=== PATIENT | female | born 1965 | race Caucasian/White ===

== ENCOUNTER 2017-03-09 11:11 | Observation (INO) | payer BC ==
[2017-03-09] MEDS ORDERED: HYDROcodone/Acetaminophen 5/325 mg Tablet PO PRN (12:19)
[2017-03-09] MEDS ORDERED: Ondansetron HCl/PF 4 MG/2 ML Vial IVP PRN (12:19)
[2017-03-09] MEDS ORDERED: Bisacodyl 5 MG TAB PO PRN (12:19)
[2017-03-09] MEDS ORDERED: Morphine Sulfate 2 MG/ML SYRINGE SLOW IVP PRN (12:21)
[2017-03-09] MEDS ORDERED: Nitroglycerin 0.4 MG TAB (25 Tab Bottle) SL PRN (12:21)
[2017-03-09 12:23] LABS: Troponin I 0.013 ng/mL (< 0.028)
--- NOTE | 2017-03-09 12:56 | HP ---
CHIEF COMPLAINT: Chest pain x2 days duration. HISTORY OF PRESENT ILLNESS: This is a 51-year-old female with a past medical history significant fo r hypertension as well as nicotine dependence, who presents to the hospital due to chest pain that s tarted a couple of days ago. The patient states that she was started on metoprolol approximately on Thursday or so. She states that approximately about a day after she began having chest pain that is located in the substernal to the left side region. She states that it was constant in nature, but h as been not fluctuating to coming and going. She states that the pain got up all the way to about a n 8-9/10. Currently, it is now /10 after nitroglycerin was given to her today. Along with this, s he was having some associated mild shortness of breath, but denies any dizziness, syncopal episodes or lightheadedness. She states this is the first time this has happened. She also denies any palpi tations as well. She denies having any cardiac stents or undergoing a catheterization in the past. Otherwise, patient denies any other current symptoms. She states that she is 1 pack per day smoke r and has been smoking for the past 20+ years. PAST MEDICAL HISTORY: See HPI. PAST SURGICAL HISTORY: None. SOCIAL HISTORY: The patient states she is a current every day smoker, 1 pack per day, denies any re creational drug use or alcohol abuse. HOME MEDICATIONS: Home medications are reviewed at this time. ALLERGIES: No known drug allergies. FAMILY HISTORY: Significant for hypertension. REVIEW OF SYSTEMS: A 14-point review of systems was reviewed and was negative other than what was m entioned in the HPI. PHYSICAL EXAMINATION: VITAL SIGNS: Blood pressure was 127/80, pulse was 56, it is now 64, respiratory rate was 18, temper ature was 97.4. The patient was satting 96% oxygen on room air. GENERAL: The patient was in no apparent distress, resting comfortably in the bed, alert, awake, simone ented x3. HEENT: Normocephalic, atraumatic. Eyes: Pupils are round and reactive to light. Extraocular musc les were intact. Conjunctivae was pink. Sclerae was nonicteric. Mouth: Oral mucosa pink and mois t. No erythema was noted. NECK: Soft, supple. No JVD, carotid bruits or lymphadenopathy. CARDIOVASCULAR: Regular rate and rhythm. S1 and S2 sounds were heard. No murmurs could be appreci ated. RESPIRATORY: Clear to auscultation bilaterally. No added sounds. ABDOMEN: Positive bowel sounds, soft, nontender, nondistended. EXTREMITIES: Pulses were 2+ dorsalis and radial pulse. No pitting edema could be appreciated. NEUROLOGIC: Cranial nerves II-XII are grossly intact. Motor was intact as well as sensation. LABORATORY DATA: White blood cell count was 7.2, hemoglobin 15.0, hematocrit was 44.1, platelet cou nt was 232. Sodium was 138, potassium 3.9, chloride 106, bicarbonate 23, BUN was 15, creatinine was 0.79, glucose is 133. EKG shows sinus bradycardia. Chest x-ray did not show any acute abnormaliti es at this time. ASSESSMENT AND PLAN: 1. Atypical chest pain. Rule out acute coronary syndrome. We will consult Cardiology. Trend trop onins. Aspirin and Lipitor. We will hold off on metoprolol at this time. The patient will likely need a stress test as the patient does have risk factors for coronary syndrome, more specifically wi th nicotine dependence that she is currently dealing with. 2. Hypertension. We will hold off metoprolol. Blood pressure is controlled at this time. We will resume home medication after medicine reconciliation. 3. Nicotine dependence. The patient was counseled on tobacco cessation. We will administer a dev keith patch. 4. Deep venous thrombosis prophylaxis. We will start the patient on Lovenox as well as venodynes.
[2017-03-09 13:28] VITALS: BMI 25.7
[2017-03-09] MEDS: Nicotine 21 MG PATCH TD SCH (13:42)
[2017-03-09] MEDS: Acetaminophen 325 MG TAB PO PRN ×2 (13:42→20:58)
[2017-03-09 15:29] LABS: Troponin I 0.011 ng/mL (< 0.028)
--- NOTE | 2017-03-09 17:29 | CON ---
DATE OF CONSULTATION: 03/09/2017 REASON FOR CONSULTATION: Chest pain. HISTORY OF PRESENT ILLNESS: Ms. Mantilla is a very pleasant 51-year-old white female who comes to the hospital for chest pain. She states that 2 days ago she started having a tight feeling in the mid sternal area. She thought it was related to the new medication she started a couple of days back. She has taken about 4 doses of metoprolol and she thought it was due to this. This morning, when th e pain was not getting any better, she decided to come in for evaluation. She had seen Dr. Ross in the last few months for symptoms of palpitations and interscapular chest pain when the palpitations happened. He did an echocardiogram that showed normal LV function and normal diastolic function and also did a 24-hour Holter monitor that showed several runs of atrial tachycardia and she was starte d on suppressive therapy with metoprolol just a few days back. She thought it was the metoprolol an d once she stopped it, she continued to have the pain. She is here for evaluation. The first set o f troponins has been negative and this is in the setting of over 24 hours of pain. Cardiology is be ing consulted for further evaluation and care. PAST MEDICAL HISTORY: 1. Hypertension. 2. Tobacco use. 3. Atrial tachycardia. PAST SURGICAL HISTORY: None. SOCIAL HISTORY: Smokes a pack a day. No drug or alcohol use. OUTPATIENT MEDICATIONS: 1. Aspirin 81 daily. 2. Metoprolol succinate 25 mg daily. ALLERGIES: No known drug allergies. FAMILY HISTORY: Noncontributory. REVIEW OF SYSTEMS: A 12-point review of systems was done and is all negative unless stated in the h istory of present illness. PHYSICAL EXAMINATION: VITAL SIGNS: Temperature 98.2, pulse 59, respiratory rate 16, satting 97% on room air, blood pressu re 113/57. GENERAL: Awake, alert and oriented x3, in no distress. HEENT: Normocephalic, atraumatic. NECK: Supple. LUNGS: Clear. CARDIOVASCULAR: S1, S2, no S3, S4, no murmurs or rubs. ABDOMEN: Soft, positive bowel sounds. EXTREMITIES: 1+ edema. SKIN: Warm and dry. LABORATORY WORK: Reviewed. Troponin is negative x2. ASSESSMENT AND PLAN: Chest pain: Concern for either gastroesophageal reflux disease or just a marlon le pericarditis. Her EKG is not indicative of pericarditis, but her pain is worse when she lays fla t on her back, better when she sits up. This could be related to some level of acid reflux from beg inning her metoprolol. We will give her a dose of Protonix. We will repeat an echocardiogram just to make sure there is no fluid around her heart. I doubt that there is going to be any difference i n her left ventricular function or valvular structures. If she does have a completely normal echo, we will plan on doing a nuclear stress test tomorrow morning. Otherwise, we will treat for whatever we find on the echo. Thank you for letting us participate in the care of your patient. Dr. Ross, her primary cardiologis t, will follow in the morning.
[2017-03-09 18:43] LABS: Troponin I 0.011 ng/mL (< 0.028)
[2017-03-09] MEDS: Docusate 100 MG CAP PO SCH (20:58)
[2017-03-09] MEDS ORDERED: Atorvastatin Calcium 40 MG TAB PO SCH (21:00)
[2017-03-10 05:29] LABS: #Basophils 0.1 thou/uL (0.0-0.2); #Eosinphils 0.1 thou/uL (0.0-0.7); #Lymphocytes 1.6 thou/uL (1.20-3.40); #Monocytes 0.4 thou/uL (0.11-0.59); #Neutrophils 3.8 thou/uL (1.40-6.50); %Basophils 1.4 % (0.0-1.0); %Eosinophils 2.4 % (0.0-10.0); %Lymphocytes 26.4 % (21.0-51.0); %Monocytes 7.3 % (0.0-10.0); Mean Platelet Volume 7.3 fL (7.4-10.4); Red Blood Cell (RBC) Count 4.99 mill/uL (4.20-5.40)
[2017-03-10 06:00] LABS: Anion Gap 11 mmol/L (10-20); BUN (Urea Nitrogen) 13 mg/dL (9.8-20.1); Calc. Creatinine Clearance 105 mL/min (70-130); Calcium 9.4 mg/dL (7.8-10.44); Carbon Dioxide 24 mmol/L (22-29); Chloride 107 mmol/L (98-107); Estimated GFR-MDRD 82
[2017-03-10] MEDS ORDERED: Enoxaparin Sodium 40 MG/0.4 ML SYRINGE SC SCH (09:00)
[2017-03-10] MEDS: Docusate 100 MG CAP PO SCH (10:46)
[2017-03-10 11:27] VITALS: BP 113/56; TEMP 97.4
[2017-03-10] MEDS ORDERED: Adenosine 6 MG/2 ML VIAL ONE (12:00)
[2017-03-10] MEDS: Nicotine 21 MG PATCH TD SCH (12:05)
--- NOTE | 2017-03-10 12:36 | NM ---
CARDIAC SPECT: HISTORY: A 51-year-old female with chest pain, HYPERTENSION, SMOKER. TECHNIQUE: A myocardial perfusion scan was performed using the single-isotope 1-day protocol with Technetium 99 m sestamibi. Eleven mCi were injected intravenously for the rest exam followed by [address] ress study. Pharmacologic stress with adenosine was monitored and interpreted by Dr. Ruslan Oden, [employer]. FINDINGS: Homogeneous tracer distribution is seen in the myocardial segments on stress and rest images without fixed or reversible defects. GATED SPECT LVEF: 72%. WALL MOTION EXAM: Normal. IMPRESSION: Normal myocardial perfusion scan. POS: OFF
--- NOTE | 2017-03-10 15:04 | DIS ---
DATE OF DISCHARGE: 03/10/2017 DISCHARGE DISPOSITION: Home. FOLLOWUP: 1. Follow up with primary care physician, Dr. Alexandrea Enriquez in 1 week. 2. Follow up with Cardiology, Dr. Waldemar Ross in 1 week. The patient was seen and examined on the day of discharge, denies any new complaints. No chest pain , shortness of breath or palpitations reported. BRIEF HOSPITAL COURSE: The patient is a 51-year-old female with hypertension with ongoing tobacco a buse, who presented to the hospital with chest discomfort. Please refer to the history and physical for further details. The patient was admitted to the hospital with a diagnosis of chest discomfort, rule out acute prado ry syndrome. The patient was evaluated by Cardiology, Dr. Benitez who was covering for Dr. Ross. A stress test was done that was negative for reversible ischemia. Echocardiogram has been done and th e report of which is pending at this time. The patient has been cleared by Cardiology for discharge . She was advised to follow up with Cardiology in next week. SIGNIFICANT LABORATORIES: 1. Cardiac enzymes were normal. 2. BUN 13, creatinine 0.74. 3. Electrolytes in normal range. 4. hemoglobin 15.1. 5. The patient was extensively counseled to quit smoking. FINAL DIAGNOSES: 1. Chest discomfort, acute coronary syndrome ruled out. Patient has been started on PPIs for possi ble GI as a cause of chest discomfort. 2. Hypertension. 3. Ongoing tobacco abuse. 4. Chronic kidney disease stage 2. Plan of care was discussed with the patient. She stated understanding.
== END 2017-03-10 16:03 | disposition home or self-care (01) ==
LOC: ERS 11:11 → 2SW 11:58
PROVIDERS: ADMIT Internal Medicine; ATTEND Internal Medicine
DX: R07.89 Other chest pain (principal); I12.9 Hypertensive chronic kidney disease with stage 1 through stage 4 chronic kidney disease, or unspecified chronic kidney disease; N18.2 Chronic kidney disease, stage 2 (mild); F17.210 Nicotine dependence, cigarettes, uncomplicated; Z79.82 Long term (current) use of aspirin; Z79.899 Other long term (current) drug therapy
CPT/HCPCS: 36415; 78452; 80048; 85025; 93005; 93017; 93306; 96372; A9500; G0378; J0153; J1650

== ENCOUNTER 2018-09-20 13:43 | Outpatient (CLI) | payer BC ==
--- NOTE | 2018-09-20 14:30 | CT ---
CT CHEST WITHOUT CONTRAST: HISTORY: Left upper lobe pulmonary nodule noted on recent chest x-ray. COMPARISON: Chest examination from 08/31/2018. FINDINGS: The lungs are clear of any infiltrative process. A thin-walled cyst is seen in the left upper lobe, adjacent to the major fissure. The area of nodularity seen in the left upper lobe is actually seen o n the vascular radiologist film, but there is no corresponding nodule, and it appears to represent just a coalescenc e of vessels. There are no bronchiectatic lung changes. Some gravity-dependent atelectasis is noted . No significant mediastinal or hilar adenopathy is appreciated. The visualized liver parenchyma shows no focal findings. IMPRESSION: 1. Unremarkable CT chest. 2. No pulmonary nodule identified within the left upper lobe. POS: H
== END 2018-09-20 13:44 | disposition home or self-care (01) ==
LOC: BICCT 13:43
PROVIDERS: ATTEND Nurse Practitioner
DX: R91.1 Solitary pulmonary nodule (principal)
CPT/HCPCS: 71250

== ENCOUNTER 2019-04-22 13:26 | Outpatient (CLI) | payer BC ==
--- NOTE | 2019-05-09 14:22 | MMO ---
Bilateral MAMMO Bilat Screen [facility]. CLINICAL HISTORY: Patient is 53 years old and is seen for screening. The patient has the following family history of breast cancer: paternal grandmother. The patient has a history of thyroid cancer at age 48. VIEWS: The views performed were: bilateral craniocaudal with tomosynthesis; bilateral mediolateral oblique with tomosynthesis; and bilateral exaggerated craniocaudal. This study has been interpreted with the assistance of computer-aided detection. MAMMOGRAM FINDINGS: The breasts are heterogeneously dense, which could obscure a lesion on mammography. Finding 1: There are calcifications with grouped or clustered distribution seen in the CC view only seen in the central region of the right breast. Finding 2: There is a biopsy clip seen in the right breast. In the left breast, there are no suspicious masses, calcifications or areas of architectural distortion. IMPRESSION: FINDING 1: CALCIFICATIONS IN THE RIGHT BREAST REQUIRE ADDITIONAL EVALUATION. MAGNIFICATION VIEWS ARE RECOMMENDED. FINDING 2: BIOPSY CLIP IN THE RIGHT BREAST IS BENIGN. THE RESULTS OF THIS EXAM WERE SENT TO THE PATIENT. ACR BI-RADS Category 0 - Incomplete: Need additional imaging evaluation. [facility] will notify the patient of the need for additional imaging services. MAMMOGRAPHY NOTE: 1. A negative mammogram report should not delay a biopsy if a dominant of clinically suspicious mass is present. 2. Approximately 10% to 15% of breast cancers are not detected by mammography. 3. Adenosis and dense breasts may obscure an underlying neoplasm. Reported by: ASTER KUO MD Electonically Signed: [id number]
== END 2019-04-22 13:27 | disposition home or self-care (01) ==
LOC: BICMAMMO 13:26
PROVIDERS: ATTEND Nurse Practitioner
DX: Z12.31 Encounter for screening mammogram for malignant neoplasm of breast (principal); R92.1 Mammographic calcification found on diagnostic imaging of breast; Z80.3 Family history of malignant neoplasm of breast; Z85.850 Personal history of malignant neoplasm of thyroid
CPT/HCPCS: 77063; 77067

== ENCOUNTER 2019-05-13 11:40 | Outpatient (CLI) | payer BC ==
--- NOTE | 2019-05-13 14:10 | MMO ---
Right Breast MAMMO Unilat Diag [facility]. CLINICAL HISTORY: Patient is 53 years old and is seen for diagnostic exam. VIEWS: The views performed were: . FILMS COMPARED: The present examination has been compared to a prior imaging study performed at [facility] on 04/22/2019. This study has been interpreted with the assistance of computer-aided detection. MAMMOGRAM FINDINGS: The breast is heterogeneously dense, which could obscure a lesion on mammography. There is a cluster of indistinct calcifications within the posterior, slightly inferior, right breast. They are very faint, difficult to characterize at this point. Thus, follow up diagnostic mammogram advised in 6 months. At this point, the indistinct nature of these calcifcations would likely make biopsy very challenging. These findings and the recommendation for 6 month follow up was discussed with the patient at the time of interpretation. IMPRESSION: FINDING IN THE RIGHT BREAST IS PROBABLY BENIGN. FOLLOW-UP IN 6 MONTHS IS RECOMMENDED. THE RESULTS OF THIS EXAM WERE SENT TO THE PATIENT. ACR BI-RADS Category 3 - Probably benign finding - short interval follow-up suggested. [facility] will notify the patient of the need for additional imaging services. MAMMOGRAPHY NOTE: 1. A negative mammogram report should not delay a biopsy if a dominant of clinically suspicious mass is present. 2. Approximately 10% to 15% of breast cancers are not detected by mammography. 3. Adenosis and dense breasts may obscure an underlying neoplasm. Reported by: PATRICK HOWE MD Electonically Signed: [id number]
== END 2019-05-13 11:41 | disposition home or self-care (01) ==
LOC: BICMAMMO 11:40
PROVIDERS: ATTEND Nurse Practitioner
DX: R92.1 Mammographic calcification found on diagnostic imaging of breast (principal)
CPT/HCPCS: G0279

== ENCOUNTER 2019-09-28 19:24 | Emergency (ER) | payer BC ==
[2019-09-28 20:02] LABS: #Basophils 0.1 thou/uL (0.0-0.2); #Eosinphils 0.1 thou/uL (0.0-0.7); #Monocytes 0.5 thou/uL (0.11-0.59); %Lymphocytes 38.7 % (21.0-51.0); %Neutrophils 52.4 % (42.0-75.0); Hemoglobin 14.1 g/dL (12.0-16.0); Mean Platelet Volume 8.3 fL (7.4-10.4); Platelet Count 260 thou/uL (130-400); RBC Distribution Width 12.1 % (11.5-14.5); Red Blood Cell (RBC) Count 4.72 mill/uL (4.20-5.40); White Blood Cell (WBC) Count 7.6 thou/uL (4.8-10.8)
--- NOTE | 2019-09-28 20:16 | RAD ---
SINGLE VIEW OF THE CHEST: 09/28/19 COMPARISON: 03/09/17. HISTORY: Syncope. FINDINGS: Single view of the chest shows a normal sized cardiomediastinal silhouette. There is no evidence of c onsolidation, mass, or pleural effusion. The bones are unremarkable. IMPRESSION: No evidence of acute cardiopulmonary disease. POS: EAA
[2019-09-28 20:26] LABS: ALT (SGPT) 12 U/L (8-55); AST (SGOT) 19 U/L (5-34); Albumin 4.2 g/dL (3.5-5.0); Alkaline Phosphatase 110 U/L (40-110); Anion Gap 16 mmol/L (10-20); BUN (Urea Nitrogen) 13 mg/dL (9.8-20.1); Bilirubin, Total 0.3 mg/dL (0.2-1.2); CK (CPK) 60 U/L (29-168); Calc. Creatinine Clearance 0 mL/min (70-130); Calcium 9.4 mg/dL (7.8-10.44); Carbon Dioxide 20 mmol/L (22-29); Chloride 108 mmol/L (98-107); Estimated GFR-MDRD 77; Globulin 3.2 g/dL (2.4-3.5); Glucose 94 mg/dL (70-105); Protein, Total 7.4 g/dL (6.0-8.3); Sodium 140 mmol/L (136-145)
--- NOTE | 2019-09-28 20:49 | CT ---
CT OF THE BRAIN WITHOUT CONTRAST: 09/28/19 COMPARISON: None. HISTORY: Syncope. TECHNIQUE: Multiple contiguous axial images were obtained in a CT of the brain without contrast. FINDINGS: There are a few scattered hypodensities and subcortical and periventricular white matter which could be secondary to small vessel ischemic disease. These are predominantly in the frontal lobes. There is no large confluent infarction. There is no evidence of hydrocephalus, intracranial hemorrhage or ext ra-axial fluid collections. The calvarium and overlying soft tissues are unremarkable. The visualized paranasal sinuses and masto id air cells are well aerated. IMPRESSION: No evidence of acute intracranial abnormality. POS: EAA
[2019-09-29] MEDS ORDERED: Meclizine HCl 25 MG TAB ONE (04:00)
--- NOTE | 2019-09-30 14:51 | EKG ---
Test Reason : Blood Pressure : / mmHG Vent. Rate : 063 BPM Atrial Rate : 063 BPM P-R Int : 126 ms QRS Dur : 092 ms QT Int : 416 ms P-R-T Axes : 046 002 -16 degrees QTc Int : 425 ms Normal sinus rhythm Incomplete right bundle branch block New T wave inversion Abnormal ECG Confirmed by PUNEET POLLARD ([id number]), mapping editor BREANA RAMIRES ([id number]) on 09/30/2019 2:51:16 PM Referred By: Confirmed By:PUNEET POLLARD
== END 2019-09-28 22:10 | disposition home or self-care (01) ==
LOC: ERS 19:24
DX: R55 Syncope and collapse (principal); R42 Dizziness and giddiness; I10 Essential (primary) hypertension; Z87.891 Personal history of nicotine dependence; Z79.82 Long term (current) use of aspirin
CPT/HCPCS: 70450; 71045; 80053; 82550; 84484; 85025; 93005

== ENCOUNTER 2019-11-14 13:43 | Outpatient (CLI) | payer BC ==
--- NOTE | 2019-11-14 15:39 | MMO ---
Right Breast MAMMO Unilat Diag [facility]. CLINICAL HISTORY: Patient is 54 years old and is seen for diagnostic exam. The patient has the following family history of breast cancer: paternal grandmother. The patient has a history of thyroid cancer at age 48. VIEWS: The views performed were: right craniocaudal; right craniocaudal spot compression magnification; right craniocaudal with tomosynthesis; right mediolateral oblique; right mediolateral oblique with tomosynthesis; right mediolateral spot compression magnification; and right mediolateral with tomosynthesis. FILMS COMPARED: The present examination has been compared to prior imaging studies performed at [facility] on 04/22/2019, 05/13/2019 and 11/14/2019. This study has been interpreted with the assistance of computer-aided detection. MAMMOGRAM FINDINGS: The breast is heterogeneously dense, which could obscure a lesion on mammography. Finding 1: There is a new lobular mass measuring 9 millimeters with obscured margins seen in the upper-outer region of the right breast. Finding 2: There are calcifications seen in the lower-inner region of the right breast. Calcifications have indeterminate appearance. IMPRESSION: FINDING 1: NEW MASS IN THE RIGHT BREAST IS SUSPICIOUS. AN ULTRASOUND-GUIDED BREAST BIOPSY IS RECOMMENDED. FINDING 2: CALCIFICATIONS IN THE RIGHT BREAST ARE SUSPICIOUS. A STEREOTACTIC BREAST BIOPSY IS RECOMMENDED. WOULD RECOMMEND ULTRASOUND BIOPSY OF MASS INITIAL PROCEDURE. IF THIS IS BENIGN I WOULD RECOMMEND STEROTACTIC BIOPSY OF CALCIFICATIONS. THE RESULTS OF THIS EXAM WERE SENT TO THE PATIENT. ACR BI-RADS Category 4 - Suspicious abnormality - biopsy should be considered MAMMOGRAPHY NOTE: 1. A negative mammogram report should not delay a biopsy if a dominant of clinically suspicious mass is present. 2. Approximately 10% to 15% of breast cancers are not detected by mammography. 3. Adenosis and dense breasts may obscure an underlying neoplasm. Reported by: ROWENA GLOVER MD Electonically Signed: [id number]
--- NOTE | 2019-11-14 19:49 | ULT ---
RIGHT BREAST ULTRASOUND: History: New nodular density seen at the 10 o'clock position right breast on mammogram. FINDINGS: Real-time imaging of the right breast at the 10 o'clock position 4 cm from the nipple shows a hypoech oic 6 x 7 mm nodule. At the 8 o'clock position 4 cm from the nipple is a complex appearing cyst measu ring in the 6 mm range. Imaging in the region of the calcifications in the right breast at approximately the 4 o'clock positi on failed to show any definite mass. IMPRESSION: 1. BIRADS category 4 - suspicious abnormality. Ultrasound directed biopsy is recommended. This was di scussed with the patient and ultrasound directed biopsy is being scheduled. 2. Calcifications seen within the right breast are somewhat indeterminate. They have increased in num elissa over time, but on some images have a somewhat smudged appearance and may represent mild of calciu m. At this point, I would occlude any further evaluation of these calcifications until the biopsy res ults of this nodule are obtained. If this nodule is benign, given indeterminate appearance of the connor cifications, I believe a stereotactic biopsy of the calcifications would be indicated as the possibil ity of a DCIS is not excluded.
== END 2019-11-14 13:44 | disposition home or self-care (01) ==
LOC: BICMAMMO 13:43
PROVIDERS: ATTEND Nurse Practitioner
DX: R92.8 Other abnormal and inconclusive findings on diagnostic imaging of breast (principal)
CPT/HCPCS: G0279

== ENCOUNTER → 2019-11-15 | Day surgery (SDC) | payer BC ==
--- NOTE | 2019-11-15 13:25 | MMO ---
FILMS COMPARED: The present examination has been compared to prior imaging studies performed at [facility] on 04/22/2019, 05/13/2019 and 11/14/2019. MAMMOGRAM FINDINGS: The breasts are heterogeneously dense, which could obscure a lesion on mammography. There is a new biopsy clip seen in the upper-outer region of the right breast. IMPRESSION: NEW BIOPSY CLIP IN THE RIGHT BREAST IS CONFIRMED UTILIZING POST PROCEDURE MAMMOGRAM. Reported by: ASTER KUO MD Electonically Signed: [id number]
--- NOTE | 2019-11-15 13:31 | ULT ---
EXAM: Ultrasound-guided right breast biopsy PROVIDED CLINICAL HISTORY: Right breast mass COMPARISON: 11/14/2019 ultrasound and mammogram FINDINGS: Limited sonographic interrogation was performed of the right breast, with localization of the previou sly described mass. Informed consent was obtained from the patient. The skin overlying this region was prepped and draped in the usual sterile manner and the soft tissues anesthetized with 1% buffered lidocaine. A small skin incision was made. Continuous ultrasound guidance was utilized to obtain 4 core samples of the mass. Subsequently, continuous ultrasound guidance was utilized to place a biopsy site marker. [place] were withdrawn and hemostasis achieved. No immediate complications. IMPRESSION: Technically successful right breast biopsy. Please correlate with histology results to follow.
== END ==
LOC: BICULT 12:31
PROVIDERS: ATTEND Nurse Practitioner
PROC: 0H9T3ZX Drainage of Right Breast, Percutaneous Approach, Diagnostic (ICD-10-PCS; principal; 2019-11-15)
DX: C50.411 Malignant neoplasm of upper-outer quadrant of right female breast (principal); Z17.1 Estrogen receptor negative status [ER-]
CPT/HCPCS: 19083; 88305; 88341; 88342

== ENCOUNTER 2020-01-05 06:15 | Outpatient (CLI) | payer BC, OTHER ==
[2020-01-05 11:27] LABS: #Basophils 0.1 thou/uL (0.0-0.2); #Eosinphils 0.1 thou/uL (0.0-0.7); #Lymphocytes 2.3 thou/uL (1.20-3.40); #Monocytes 0.4 thou/uL (0.11-0.59); #Neutrophils 3.3 thou/uL (1.40-6.50); %Basophils 1.2 % (0.0-1.0); %Lymphocytes 36.7 % (21.0-51.0); %Monocytes 6.1 % (0.0-10.0); %Neutrophils 53.9 % (42.0-75.0); Hemoglobin 14.2 g/dL (12.0-16.0); Mean Corpuscular HGB CONC 33.2 g/dL (32.0-36.0); Mean Corpuscular Hemoglobin 29.4 pg (27.0-31.0); Mean Corpuscular Volume 88.6 fL (78.0-98.0); Mean Platelet Volume 9.3 fL (7.4-10.4); Platelet Count 255 thou/uL (130-400); RBC Distribution Width 12.5 % (11.5-14.5); Red Blood Cell (RBC) Count 4.83 mill/uL (4.20-5.40); White Blood Cell (WBC) Count 6.2 thou/uL (4.8-10.8)
[2020-01-05 12:13] LABS: Anion Gap 15 mmol/L (10-20); BUN (Urea Nitrogen) 15 mg/dL (9.8-20.1); Calc. Creatinine Clearance 0 mL/min (70-130); Calcium 9.2 mg/dL (7.8-10.44); Carbon Dioxide 22 mmol/L (22-29); Chloride 107 mmol/L (98-107); Estimated GFR-MDRD 76; Glucose 97 mg/dL (70-105); Potassium 4.5 mmol/L (3.5-5.1); Sodium 139 mmol/L (136-145)
[2020-01-05 17:44] LABS: SARS-CoV-2 MS2 Positive; SARS-CoV-2 N Gene Negative; SARS-CoV-2 S Gene Negative; SARS-CoV-2 by NAA Not Detected (NotDetected); SARS-CoV-2 orf1ab Negative
== END 2020-01-05 06:16 | disposition home or self-care (01) ==
LOC: LABBT 06:15
PROVIDERS: ATTEND Surgery
DX: Z01.812 Encounter for preprocedural laboratory examination (principal); Z11.59 Encounter for screening for other viral diseases; C50.919 Malignant neoplasm of unspecified site of unspecified female breast
CPT/HCPCS: 80048; 85025; 87635; U0003

== ENCOUNTER 2020-01-10 07:17 | Day surgery (SDC) | payer BC ==
[2020-01-03 10:55] VITALS: BMI 28.6
[2020-01-10] MEDS ORDERED: Acetaminophen 500 MG TAB ONE (09:03)
[2020-01-10] MEDS ORDERED: Ketorolac Tromethamine 30 MG/ML VIAL ONE ×2 (09:03→10:21)
--- NOTE | 2020-01-10 09:58 | NM ---
Radionucleotide lymphoscintigraphy right breast HISTORY: Right breast cancer. FINDINGS: Intradermal injection of 1 cc radiotracer containing 409 uCi technetium 99m filtered sulfur colloid at the periareolar right breast. Injection site massaged by the patient. Immediate imaging shows a focal area of uptake overlying the central axillary tail of the right breas t. More subtle areas of uptake overlies the superior breast. The skin overlying the axillary tail sentinel lymph node was marked and patient sent for the surgery. Patient tolerated the procedure well and was transferred to day surgery in good condition. IMPRESSION : Technically successful right breast lymphoscintigraphy. [place] node at the axillary tail right franco st.
[2020-01-10] MEDS ORDERED: PHENYLEPHRINE-NS 100 MCG/ML 10 ML SYRINGE ONE (10:21)
[2020-01-10] MEDS ORDERED: Rocuronium Bromide 10 MG/ML (10ML VIAL) ONE (10:21)
[2020-01-10] MEDS ORDERED: Lidocaine 1% PF 5 ML VIAL ONE (10:21)
[2020-01-10] MEDS ORDERED: EPHEDRINE 25 MG/5 ML SYRINGE ONE (10:21)
[2020-01-10] MEDS ORDERED: Dexamethasone 20 MG/5 ML VIAL ONE (10:21)
[2020-01-10] MEDS ORDERED: PROPOFOL 200 MG/20 ML VIAL ONE (10:21)
[2020-01-10] MEDS ORDERED: Glycopyrrolate 0.2 MG/ML 5 ML SYRINGE ONE (10:21)
[2020-01-10] MEDS ORDERED: Ondansetron PF 4 MG/2 ML Vial ONE (10:21)
[2020-01-10] MEDS ORDERED: Lidocaine 1% w/Epinephrine 1:100K 20 ML VIAL ONE (11:28)
[2020-01-10] MEDS ORDERED: Methylene Blue 50 MG/10 ML AMPUL ONE (11:28)
[2020-01-10] MEDS ORDERED: Bupivacaine 0.25% HCL 30 ML VIAL ONE (11:28)
--- NOTE | 2020-01-10 12:58 | HP ---
CHIEF COMPLAINT: Right breast cancer. HISTORY OF PRESENT ILLNESS: Ms. Mantilla is a 54-year-old woman with a family history of breast cancer in an aunt and a grandmother, who had an abnormal mammogram 6 months ago with an area of suspicious calcifications on the right. She underwent her 6-month followup mammogram and those calcifications appeared slightly more prominent, but she also had a new mass seen in a different quadrant of breast. This was biopsied and was confirmed as invasive ductal carcinoma. [place], [place], and HER-2/sukhdeep negative. This was quite small. She has a clinically negative axilla, so the oncologist feel that she is appropriate for primary surgical therapy, but she will need postoperative chemotherapy. A MediPort has been requested for this. The patient has decided for personal reasons that she wants bilateral mastectomies. She understands that this is not expected to impact her survival and that either unilateral mastectomy or lumpectomy with radiation therapy would be adequate treatment for her primary cancer. However, she does not want to worry about recurrence in the breast or about a contralateral cancer in the future and strongly desires bilateral mastectomies for this reason. She is not interested in reconstruction, although this was offered as an option. She has undergone BRCA testing due to her family history and this is negative. She does not have any identified genetic predisposition toward breast cancer. PAST MEDICAL HISTORY: Thyroid cancer. PAST SURGICAL HISTORY: Hemithyroidectomy. She is euthyroid and not on any hormone replacement. ALLERGIES: NO KNOWN DRUG ALLERGIES. MEDICATIONS: Aspirin, which she stopped last week. FAMILY HISTORY: Of both small cell and non-small cell cancer in several relatives some at an early age. Also history of breast cancer in an aunt and a grandmother. REVIEW OF SYSTEMS: Ten system review of systems is negative except per HPI. The patient specifically denies cough, sore throat, runny nose, fevers, chills, body aches, or loss of smell and taste. PHYSICAL EXAMINATION: HEENT: Unremarkable. GENERAL: She has a well-healed collar incision. NECK: No palpable masses or lymphadenopathy in the neck. HEART: Regular in its rate and rhythm without murmurs, rubs, or gallops. LUNGS: Clear to auscultation bilaterally with good air entry. ABDOMEN: Soft, nontender, nondistended. EXTREMITIES: Warm, well perfused without edema. NEUROLOGIC: No focal deficits. PSYCHIATRIC: Alert, oriented, and appropriate. LYMPHATIC: No palpable axillary lymphadenopathy. BREAST: No palpable dominant mass skin changes or nipple discharge bilaterally. LABORATORY DATA: Lymph node scintigraphy images are reviewed and she does have uptake in the right axilla as well as some fainter uptake in the upper right breast, which may be an intramammary lymph node. ASSESSMENT: Right triple negative breast cancer. The patient has opted for bilateral mastectomies. She understands that this is not medically mandatory, but she desires this for personal reasons. The procedure and its inherent risks were discussed with the patient and her family member. They understand and accept these risks, and wished to proceed. All their questions were answered. She will undergo right lymphoscintigraphy and sentinel lymph node biopsy as well and a MediPort placement on the left. Job ID: [id number] [id number]
[2020-01-10] MEDS ORDERED: Fentanyl 100 MCG/2 ML VIAL ONE (13:12)
[2020-01-10] MEDS ORDERED: Promethazine HCl 25 MG/ML VIAL IM PRN (16:23)
[2020-01-10] MEDS ORDERED: Ondansetron HCl/PF 4 MG/2 ML Vial IVP PRN (16:23)
[2020-01-10] MEDS ORDERED: Promethazine HCl 25 MG/ML VIAL SLOW IVP PRN (16:23)
--- NOTE | 2020-01-10 18:44 | RAD ---
PORTABLE CHEST ONE VIEW: 01/10/20 at 4:29 p.m. HISTORY: Mediport placement, right breast cancer. FINDINGS/IMPRESSION: There is a left subclavian Port-A-Cath with tip in the projection of the SVC. The heart size is borde rline. There are patchy opacities in the lower lung preston bilaterally. No pneumothoraces or large ef fusions are seen. POS: OFF
--- NOTE | 2020-01-15 10:45 | PDOC.OP ---
Operative Note - Operative Note Operative Note: PROCEDURE: Left subclavian MediPort placement with fluoroscopic guidance, bilateral simple mastectomy and right lymphoscintigraphy and sentinel lymph node biopsy. DATE OF PROCEDURE: 01/10/2020 SURGEON: Reji Shipley M.D. PREOPERATIVE DIAGNOSIS: Right breast cancer POSTOPERATIVE DIAGNOSIS: Right breast cancer HISTORY: Patient has been diagnosed with right breast cancer. Chemotherapy has been recommended and a Mediport has been requested for this. She has opted to proceed with bilateral mastectomies, and does not desire reconstruction. Right lymphoscintigraphy and sentinel lymph node biopsy is to be performed for staging purposes. OPERATIVE PROCEDURE IN DETAIL: After informed consent was obtained and appropriate preoperative antibiotics administered, the patient was taken to the operating room and placed in supine position and monitored anesthesia care was administered. The right nipple was cleansed with alcohol and Lymphazurin injected intradermally beneath the nipple in 4 quadrants. The breast was massaged for 5 minutes. The patient was then prepped and draped and placed in Trendelenburg position and the left subclavian vein accessed easily on the first attempt with excellent flow of dark venous non-pulsatile blood. A wire threaded easily and was confirmed to be in the superior vena cava by fluoroscopy. Additional local anesthesia was infused to the skin and subcutaneous tissues lateral and inferior to the access site. The skin incision was extended from the wire laterally and a subcutaneous pocket developed inferiorly. A Mediport was obtained and confirmed to fit in the subcutaneous pocket. This was secured inferiorly to the pectoralis fascia with a Prolene suture, which was clamped, but not tied. The dilator and sheath were then placed over the wire and the dilator and wire removed leaving the sheath in place. The clamped MediPort tubing was tunneled through the sheath, which was then split and removed leaving the MediPort tubing in place. The tubing was adjusted until the tip was confirmed by fluoroscopy to be in the superior vena cava just above the atrium. The tubing was clamped at the skin level and cut and the tubing secured to the port, which was then placed in the subcutaneous pocket. The previously placed suture was secured and two additional sutures were placed to fix the port in place within the pocket. The port was aspirated with the Tran needle and had excellent flow of dark venous non-pulsatile blood and easily flushed without resistance. The subcutaneous tissues were closed with a running Monocryl suture, following which the skin was closed with a running subcuticular Monocryl suture. Dermabond dressings were placed and the hub was again accessed through the skin and confirmed to easily aspirate and easily flush. The course of the catheter was confirmed by fluoroscopy to be smooth with the tip appropriately located in the superior vena cava. Attention was then turned to the bilateral mastectomies and right sentinel lymph node biopsy. The patient was positioned for bilateral mastectomies and reprepped and draped. Bilateral elliptical skin incisions were marked simultaneously for symmetry. The left simple mastectomy was performed first. The skin was incised and flaps raised inferiorly to the level of the rectus sheath, medially to the sternum and superiorly to the clavicle avoiding the area of the Mediport. The breast tissue was then excised off of the pectoralis muscle and marked for orientation with a long lateral and short superior suture. The specimen was passed from the table and the wound was irrigated and hemostasis obtained using Bovie electrocautery. A ELINOR drain was placed and secured to the skin. The deep dermal tissues were approximated with interrupted [id number] 2-0 Vicryl sutures and the skin closed with skin ivana. A Xeroform gauze and Tegaderm dressing was placed and attention turned to the right sentinel lymph node biopsy and mastectomy. Local anesthesia was infused to the lower edge of the hairbearing skin of the axilla. The superior edge of the lateral elliptical incision was incised and dissection carried down to the axilla. The area of highest activity was identified by neoprobe. 2 small, normal-appearing, non-blue lymph nodes with increased activity were identified and excised and target counts performed. The first one had a target count of 280 and the second one had a target count of around 40. The axilla was examined and palpated and no other palpable abnormal nodes nor areas of increased activity were found. The wound was irrigated and hemostasis verified. Additional local anesthesia was infused for postoperative pain control and the subcutaneous tissues were reapproximated with 3-0 Monocryl suture. Attention was then turned to the right mastectomy. The remainder of the elliptical incision was incised and flaps raised superiorly to the level of the clavicle, medially to the sternal edge and inferiorly to the rectus sheath. The breast tissue was then excised off of the underlying pectoralis muscle and marked for orientation with a long lateral and short superior suture. As the breast tissue was being excised some blue lymphatics in the axillary tail were noted and a blue intramammary lymph node identified. This was found to have a higher target count than the first 2 sentinel lymph nodes and was excised from the breast tissue and sent as sentinel lymph node #3. No other lymph nodes within the breast itself were identified. The wound was irrigated and hemostasis obtained using Bovie electrocautery. A ELINOR drain was placed and secured to the skin. The deep dermal tissues were reapproximated with interrupted [id number] 2-0 Vicryl sutures and the skin closed with skin ivana. The wound was dressed with Xeroform gauze and Tegaderm and the patient was extubated and taken to recovery in good condition. Estimated blood loss was minimal. There were no complications. Specimen is left breast, right breast, and right sentinel lymph nodes x3. The third sentinel lymph node is actually from the axillary tail of the breast.
== END 2020-01-10 19:15 | disposition home or self-care (01) ==
LOC: SDC 07:17
PROVIDERS: ATTEND Surgery
PROC: 02HV33Z Insertion of Infusion Device into Superior Vena Cava, Percutaneous Approach (ICD-10-PCS; principal; 2020-01-10)
PROC: 0JH60WZ Insertion of Totally Implantable Vascular Access Device into Chest Subcutaneous Tissue and Fascia, Open Approach (ICD-10-PCS; principal; 2020-01-10)
PROC: 07B50ZX Excision of Right Axillary Lymphatic, Open Approach, Diagnostic (ICD-10-PCS; principal; 2020-01-10)
PROC: B518ZZA Fluoroscopy of Superior Vena Cava, Guidance (ICD-10-PCS; principal; 2020-01-10)
PROC: 0HTV0ZZ Resection of Bilateral Breast, Open Approach (ICD-10-PCS; principal; 2020-01-10)
DX: C50.411 Malignant neoplasm of upper-outer quadrant of right female breast (principal); N60.82 Other benign mammary dysplasias of left breast; D24.2 Benign neoplasm of left breast; R92.0 Mammographic microcalcification found on diagnostic imaging of breast; E89.0 Postprocedural hypothyroidism; Z85.850 Personal history of malignant neoplasm of thyroid; Z87.891 Personal history of nicotine dependence; Z17.1 Estrogen receptor negative status [ER-]; Z79.82 Long term (current) use of aspirin
CPT/HCPCS: 71045; 78195; 88307; 88342; A9541; C1788; J0690; J1100; J1642; J1885; J2405; J2704; J3010; Q9968; S0020

== ENCOUNTER 2020-10-12 13:53 | Outpatient (CLI) | payer OTHER | END 2020-10-12 13:54 | disposition home or self-care (01) | LOC: BICCT 13:53 | PROVIDERS: ATTEND Nurse Practitioner | DX: R07.81 Pleurodynia (principal) | CPT/HCPCS: 71250 ==

== ENCOUNTER 2021-03-01 08:12 | Outpatient (CLI) | payer OTHER ==
[2021-03-01] MEDS ORDERED: Magnevist 469MG/ML 20 ML VIAL ONE (11:27)
== END 2021-03-01 08:13 | disposition home or self-care (01) ==
LOC: MRI 08:12
PROVIDERS: ATTEND Internal Medicine Hematology & Oncology
DX: C50.411 Malignant neoplasm of upper-outer quadrant of right female breast (principal); R55 Syncope and collapse; R90.0 Intracranial space-occupying lesion found on diagnostic imaging of central nervous system
CPT/HCPCS: 70553; 93005; 93010; A9579

== ENCOUNTER 2021-10-04 07:38 | Outpatient (CLI) | payer OTHER | END 2021-10-04 07:39 | disposition home or self-care (01) | LOC: BICMAMMO 07:38 | PROVIDERS: ATTEND Internal Medicine Hematology & Oncology | DX: Z13.820 Encounter for screening for osteoporosis (principal); M85.851 Other specified disorders of bone density and structure, right thigh; M85.852 Other specified disorders of bone density and structure, left thigh; T38.6X5A Adverse effect of antigonadotrophins, antiestrogens, antiandrogens, not elsewhere classified, initial encounter | CPT/HCPCS: 77080 ==

== ENCOUNTER 2022-02-26 11:41 | Outpatient (CLI) | payer OTHER | END 2022-02-26 11:42 | disposition home or self-care (01) | LOC: BICRAD 11:41 | PROVIDERS: ATTEND Internal Medicine | DX: M25.551 Pain in right hip (principal); M25.561 Pain in right knee; M54.50 Low back pain, unspecified; C50.411 Malignant neoplasm of upper-outer quadrant of right female breast; D70.1 Agranulocytosis secondary to cancer chemotherapy; M47.817 Spondylosis without myelopathy or radiculopathy, lumbosacral region; M43.17 Spondylolisthesis, lumbosacral region | CPT/HCPCS: 72100 ==